=== PATIENT | female | born 1950 | race Two or more races ===

== ENCOUNTER 2021-05-18 11:30 | Outpatient (CLI) | payer OTHER | END 2021-05-18 11:35 | disposition home or self-care (01) | LOC: SONOGRAMA 11:30 | PROVIDERS: ATTEND Pathology Anatomic Pathology & Clinical Pathology | DX: D34 Benign neoplasm of thyroid gland (principal); E04.8 Other specified nontoxic goiter ==

== ENCOUNTER 2024-03-12 11:36 | Outpatient (CLI) | payer OTHER | END 2024-03-12 11:40 | disposition home or self-care (01) | LOC: SONOGRAMA 11:36 | PROVIDERS: ATTEND Pathology Anatomic Pathology & Clinical Pathology | DX: D34 Benign neoplasm of thyroid gland (principal); E07.89 Other specified disorders of thyroid; E04.2 Nontoxic multinodular goiter ==